=== PATIENT | female | born 1945 | race Caucasian/White ===

== ENCOUNTER 2018-08-24 15:13 | Inpatient (IN) | payer BC, MEDICARE ==
[~2018-08-24] VITALS: Ht 152.4 cm; Wt 63.0 kg
[~2018-08-24 15:13] MED LIST: ABILIFY5 MG ORAL; BETHANECHOL CHL10 MG ORAL; CELEXA20 MG PO; DEPAKOTE250 MG PO; DEPAKOTE500 MG PO; DITROPAN10 MG ORAL; GABAPENTIN300 MG ORAL; MELATONIN1 MG/1 ML PO; MELATONIN3 MG ORAL; QUETIAPINE FUM100 MG ORAL; QUETIAPINE FUM200 MG ORAL; SEROQUEL100 MG ORAL; SEROQUEL25 MG ORAL; TRAMADOL HCL50 MG ORAL; TRAZODONE HCL100 MG ORAL; VESICARE10 MG ORAL
[2018-08-24 15:25] VITALS: BP 110/60
[2018-08-24] MEDS ORDERED: DIVALPROEX SOD500 M2 PO (15:52)
[2018-08-24] MEDS ORDERED: GABAPENTIN300 MG ORAL (15:52)
[2018-08-24] MEDS ORDERED: QUETIAPINE FUMA50 MG ORAL (15:52)
[2018-08-24 17:00] VITALS: BP 137/59
[2018-08-24 17:00] LABS: ANION GAP 12 mmol/L (5-15); BLOOD UREA NITROGEN 36 mg/dL (7-18); CALCIUM 9.7 MG/DL (8.5-10.1); CARBON DIOXIDE 20 MMOL/L (21-32); CHLORIDE 112 MMOL/L (98-107); POTASSIUM 4.3 MMOL/L (3.5-5.1); SODIUM 144 MMOL/L (136-145)
[2018-08-24 17:10] LABS: ALANINE AMINOTRANSFERASE 16 U/L (12-78); ALBUMIN 2.9 G/DL (3.4-5.0); ALBUMIN/GLOBULIN RATIO 0.7 (1.0-2.7); ALKALINE PHOSPHATASE 111 U/L (46-116); ASPARTATE AMINO TRANSFERASE 24 U/L (15-37); BILIRUBIN,TOTAL 0.3 MG/DL (0.2-1.0)
--- NOTE | 2018-08-24 17:24 | Diagnostic Imaging Report ---
EXAM: XR Chest, 1 View CLINICAL HISTORY: PAIN TECHNIQUE: Frontal view of the chest. COMPARISON: No relevant prior studies available. FINDINGS: Lungs: Unremarkable. No consolidation. Pleural space: Unremarkable. No pneumothorax. Heart: Unremarkable. No cardiomegaly. Mediastinum: Aortic calcifications. Bones/joints: Unremarkable. Upper abdomen: Abundant bowel gas below the mildly elevated left hemidiaphragm. IMPRESSION: No evidence of acute pulmonary disease. Abundant bowel gas below the mildly elevated left hemidiaphragm.
--- NOTE | 2018-08-24 17:26 | Diagnostic Imaging Report ---
EXAM: CT Head Without Intravenous Contrast CLINICAL HISTORY: AMS TECHNIQUE: Axial computed tomography images of the head/brain without intravenous contrast. CTDI is 70.38 mGy and DLP is 1337 mGy-cm One or more of the following dose reduction techniques were used: automated exposure control, adjustment of the mA and/or kV according to patient size, use of iterative reconstruction technique. COMPARISON: No relevant prior studies available. FINDINGS: Brain: No intracranial hemorrhage or mass effect. No clear acute large vessel territorial infarct. Involutional and microvascular ischemic changes. Ventricles: Ventriculomegaly is felt to be commensurate with central volume loss. Bones/joints: Unremarkable. No acute fracture. Soft tissues: Unremarkable. Sinuses: Unremarkable as visualized. No acute sinusitis. Mastoid air cells: Unremarkable as visualized. No mastoid effusion. IMPRESSION: No acute intracranial process.
[2018-08-24 17:35] LABS: APPEARANCE,URINE CLEAR; BILIRUBIN, URINE NEGATIVE (NEGATIVE); COLOR,URINE PALE YELLOW; GLUCOSE, URINE (UA) NEGATIVE (NEGATIVE); KETONES,URINE NEGATIVE (NEGATIVE); LEUKOCYTE ESTERASE ,URINE NEGATIVE (NEGATIVE); NITRITE,URINE NEGATIVE (NEGATIVE); PH,URINE 6.5 (4.5-8.0); PROTEIN,URINE NEGATIVE (NEGATIVE); UROBILINOGEN,URINE NORMAL MG/DL (0.0-1.0)
[2018-08-24 19:02] LABS: HEMATOCRIT 23.7 % (37.0-47.0); HEMOGLOBIN 7.9 G/DL (12.0-16.0); MEAN CORPUSCULAR VOLUME 94 FL (80-99); PLATELET COUNT 99 K/UL (150-450); RED BLOOD COUNT 2.53 M/UL (4.20-5.40); RED CELL DISTRIBUTION WIDTH 13.3 % (11.6-14.8); WHITE BLOOD COUNT 2.3 K/UL (4.8-10.8)
[2018-08-24 19:10] VITALS: BP 128/62
--- NOTE | 2018-08-24 19:10 | Emergency Room Report ---
History of Present Illness General Chief Complaint: Altered Mental Status Source: Patient, Caregiver Present Illness HPI 73-year-old female presents ED for evaluation. She brought in by clay roaster from [facility] facility. Increased sleepiness and confusion 1 day. Hand Launderer states that patient is new to their facility. [facility] Patient appears at baseline to her however daughter spoke to patient on the phone believe the patient appeared altered. Patient states she feels okay. Is lethargic. Documented psychiatric history. Takes medications. No SI or HI. No hearing voices. Denies chest pain or shortness of breath. Denies headache. Denies nausea or vomiting. No other aggravating relieving factors. Denies any other associated symptoms Allergies: Coded Allergies: PENICILLINS (Verified Allergy, Unknown, 08/24/18) Patient History Past Medical History: psych hx Past Surgical History: none Pertinent Family History: none Social History: Denies: smoking, alcohol use, drug use Now: No Immunizations: UTD Reviewed Nursing Documentation: PMH: Agreed; PSxH: Agreed Nursing Documentation-PMH Past Medical History: No History, Except For History Of Psychiatric Problem: Yes - Bipolar Review of Systems All Other Systems: negative except mentioned in HPI Physical Exam Vital Signs Date Time Temp Pulse Resp B/P (MAP) Pulse Ox O2 Delivery O2 Flow Rate FiO2 08/24/18 15:25 97.7 78 20 110/60 98 Room Air 97.7 Sp02 EP Interpretation: reviewed, normal General Appearance: no apparent distress, GCS 15, non-toxic, lethargic Head: normocephalic, atraumatic Eyes: bilateral eye normal inspection, bilateral eye PERRL ENT: hearing grossly normal, normal pharynx, no angioedema, normal voice Neck: full range of motion, supple/symm/no masses Respiratory: chest non-tender, lungs clear, normal breath sounds, speaking full sentences Cardiovascular #1: regular rate, rhythm, no edema Cardiovascular #2: 2+ carotid (R), 2+ carotid (L), 2+ radial (R), 2+ radial (L) , 2+ dorsalis pedis (R), 2+ dorsalis pedis (L) Gastrointestinal: normal bowel sounds, non tender, soft, non-distended, no guarding, no rebound Rectal: deferred Genitourinary: normal inspection, no CVA tenderness Musculoskeletal: back normal, gait/station normal, normal range of motion, non- tender Neurologic: alert, responsive, motor strength/tone normal, sensory intact, other - lethargic Psychiatric: other - lethargic Reflexes: 3+ bicep (R), 3+ bicep (L), 3+ tricep (R), 3+ tricep (L), 3+ knee (R) , 3+ knee (L) Skin: normal color, no rash, warm/dry, well hydrated Lymphatic: no adenopathy Medical Decision Making Diagnostic Impression: Primary Impression: Dehydration Additional Impressions: Altered mental status Qualified Codes: R41.82 - Altered mental status, unspecified Anemia Qualified Codes: D64.9 - Anemia, unspecified ER Course Hospital Course 73-year-old female presents with increased lethargy times [facility] Differential diagnoses include: arrythmia, dehydration, CVA/TIA, UTI Clinical course Patient placed on stretcher. on cardiac sonographer. After initial history and physical I ordered labs, EKG, chest x-ray, IVFs, CT Brain labs reviewed- no leukocytosis, hemoglobin 7.9, BUN/Cr 36/2. UA negative, UTox negative EKG- NSR, no acute ischemic changes interpreted by me Chest x-ray- no acute process CT brain-unremarkable Concern for dehydration. Case discussed with Dr. Hfofman and he agreed to accept the patient to his service for further care and support I. I feel this is a highly complex case requiring extensive working including EKG/Rhythm strip, Xray/CT/US, Blood/urine lab work, repeat exams while in ED, and administration of strong opiates/narcotics for pain control, admission to hospital or close patient follow up. Diagnosis -dehydration, AMS, anemia admitted to floor in serious condition Labs Test 08/24/18 16:12 08/24/18 17:20 08/24/18 18:54 Sodium Level 144 MMOL/L (136-145) Potassium Level 4.3 MMOL/L (3.5-5.1) Chloride Level 112 MMOL/L (98-107) Carbon Dioxide Level 20 MMOL/L (21-32) Anion Gap 12 mmol/L (5-15) Blood Urea Nitrogen 36 mg/dL (7-18) Creatinine 2.0 MG/DL (0.55-1.30) Estimat Glomerular Filtration Rate mL/min (>60) Glucose Level 114 MG/DL (74-106) Calcium Level 9.7 MG/DL (8.5-10.1) Total Bilirubin 0.3 MG/DL (0.2-1.0) Aspartate Amino Transf (AST/SGOT) 24 U/L (15-37) Alanine Aminotransferase (ALT/SGPT) 16 U/L (12-78) Alkaline Phosphatase 111 U/L (46-116) Total Protein 6.9 G/DL (6.4-8.2) Albumin 2.9 G/DL (3.4-5.0) Globulin 4.0 g/dL Albumin/Globulin Ratio 0.7 (1.0-2.7) Acetaminophen Level < 2 MCG/ML (10-30) Valproic Acid (Depakene) Level 106 MCG/ML (50-100) Serum Alcohol < 3 mg/dL Urine Color Pale yellow Urine Appearance Clear Urine pH 6.5 (4.5-8.0) Urine Specific Warren 1.005 (1.005-1.035) Urine Protein Negative (NEGATIVE) Urine Glucose (UA) Negative (NEGATIVE) Urine Ketones Negative (NEGATIVE) Urine Blood Negative (NEGATIVE) Urine Nitrite Negative (NEGATIVE) Urine Bilirubin Negative (NEGATIVE) Urine Urobilinogen Normal MG/DL (0.0-1.0) Urine Leukocyte Esterase Negative (NEGATIVE) Urine Opiates Screen Negative (NEGATIVE) Urine Barbiturates Screen Negative (NEGATIVE) Phencyclidine (PCP) Screen Negative (NEGATIVE) Urine Amphetamines Screen Negative (NEGATIVE) Urine Benzodiazepines Screen Negative (NEGATIVE) Urine Cocaine Screen Negative (NEGATIVE) Urine Marijuana (THC) Screen Negative (NEGATIVE) White Blood Count 2.3 K/UL (4.8-10.8) Red Blood Count 2.53 M/UL (4.20-5.40) Hemoglobin 7.9 G/DL (12.0-16.0) Hematocrit 23.7 % (37.0-47.0) Mean Corpuscular Volume 94 FL (80-99) Mean Corpuscular Hemoglobin 31.2 PG (27.0-31.0) Mean Corpuscular Hemoglobin Concent 33.3 G/DL (32.0-36.0) Red Cell Distribution Width 13.3 % (11.6-14.8) Platelet Count 99 K/UL (150-450) Mean Platelet Volume 7.6 FL (6.5-10.1) Neutrophils (%) (Auto) % (45.0-75.0) Lymphocytes (%) (Auto) % (20.0-45.0) Monocytes (%) (Auto) % (1.0-10.0) Eosinophils (%) (Auto) % (0.0-3.0) Basophils (%) (Auto) % (0.0-2.0) EKG Diagnostic Results Rate: normal Rhythm: NSR ST Segments: no acute changes ASA given to the pt in ED: No Rhythm Strip Diag. Results EP Interpretation: yes Rhythm: NSR, no PVC's, no ectopy Chest X-Ray Diagnostic Results Chest X-Ray Diagnostic Results : Chest X-Ray Ordered: Yes # of Views/Limited/Complete: 1 View Indication: Other - ams EP Interpretation: Yes Interpretation: no consolidation, no effusion, no pneumothorax, no acute cardiopulmonary disease Impression: No acute disease Electronically Signed by: Electronically signed by Misha Atwood MD CT/MRI/US Diagnostic Results CT/MRI/US Diagnostic Results : Imaging Test Ordered: CT head Impression no acute process Last Vital Signs Date Time Temp Pulse Resp B/P (MAP) Pulse Ox O2 Delivery O2 Flow Rate FiO2 08/24/18 17:00 97.4 78 17 137/59 99 Room Air 97.4 Status: improved Disposition: ADMITTED INPATIENT Condition: Serious Referrals: NOT CHOSEN IPA/,REFERRING (PCP) Misha Atwood MD Aug 24, 2018 19:10
[2018-08-24 22:22] VITALS: BP 122/60
[2018-08-24 22:45] VITALS: BP 135/61
[2018-08-24] MEDS ORDERED: QUETIAPINE FUM200 MG ORAL (23:16)
[2018-08-25] VITALS: BP 133/65
[2018-08-25] MEDS ORDERED: Acetaminophen 500mg (ES) tab ORAL PRN (00:30)
[2018-08-25] MEDS: 1/2NS w/KCl 20mEq 1000ml 1,000 ML IV SCH ×2 (00:55→16:40)
[2018-08-25 04:00] VITALS: BP 155/70
[2018-08-25 08:00] VITALS: BP 153/84
[2018-08-25 08:32] LABS: HEMATOCRIT 25.7 % (37.0-47.0); HEMOGLOBIN 8.2 G/DL (12.0-16.0); MEAN CORPUSCULAR VOLUME 94 FL (80-99); PLATELET COUNT 89 K/UL (150-450); RED BLOOD COUNT 2.74 M/UL (4.20-5.40); RED CELL DISTRIBUTION WIDTH 14.1 % (11.6-14.8); WHITE BLOOD COUNT 6.7 K/UL (4.8-10.8)
[2018-08-25 08:55] LABS: ANION GAP 10 mmol/L (5-15); BLOOD UREA NITROGEN 25 mg/dL (7-18); CALCIUM 9.8 MG/DL (8.5-10.1); CARBON DIOXIDE 20 MMOL/L (21-32); CHLORIDE 117 MMOL/L (98-107); CREATININE 1.6 MG/DL (0.55-1.30); POTASSIUM 4.8 MMOL/L (3.5-5.1); SODIUM 147 MMOL/L (136-145)
[2018-08-25] MEDS: Heparin 5000 units/ml inj SUBQ SCH ×2 (08:55→20:20)
[2018-08-25 12:00] VITALS: BP 133/73
[2018-08-25 16:00] VITALS: BP 157/81
[2018-08-25 20:00] VITALS: BP 122/69
[2018-08-25] MEDS: QUEtiapine 200mg tab ORAL SCH (20:14)
[2018-08-25] MEDS: Depakote ER 500mg tab ORAL SCH (20:17)
--- NOTE | 2018-08-25 21:37 | Consultation ---
History of Present Illness General Date patient seen: Aug 25, 2018 Chief Complaint: Altered Mental Status Present Illness HPI 3-year-old female from a [facility]. The patient was brought into the hospital with altered level of consciousness. the pt has been confused and pw waxing and waning of consciousness Allergies: Coded Allergies: PENICILLINS (Verified Allergy, Mild, Rash, 01/25/15) Uncoded Allergies: wool (Adverse Reaction, Mild, Rash, 12/02/14) Medication History Scheduled Divalproex Sodium (Depakote), 750 MG PO QHS, (Reported) Divalproex Sodium (Divalproex Sodium Er), 1,000 MG PO BEDTIME, (Reported) Divalproex Sodium* (Depakote*), 250 MG PO hs, (Reported) Gabapentin* (Gabapentin*), 300 MG ORAL 3 times a day, (Reported) Gabapentin* (Gabapentin*), 300 MG ORAL THREE TIMES A DAY, (Reported) Quetiapine Fumarate* (Seroquel*), 250 MG ORAL QHS, (Reported) Quetiapine Fumarate* (Seroquel*), 200 MG ORAL BEDTIME, (Reported) Solifenacin Succinate (Vesicare*), 10 MG ORAL DAILY, (Reported) Scheduled PRN Tramadol Hcl* (Ultram*), 50 MG ORAL Q6H PRN for For Pain, (Reported) Patient History Limited by: medical condition History Provided By: Patient, Medical Record Healthcare decision maker N Resuscitation status Full Code Advanced Directive on File Past Medical/Surgical History Past Medical/Surgical History: (1) Dehydration (2) Anemia (3) Altered mental status Review of Systems Psychiatric: Reports: anxiety, depressed feelings, emotional problems Physical Exam General Appearance: no apparent distress, alert, confused Last 24 Hour Vital Signs Date Time Temp Pulse Resp B/P (MAP) Pulse Ox O2 Delivery O2 Flow Rate FiO2 08/25/18 20:40 Room Air 08/25/18 20:00 97.7 78 16 122/69 (86) 99 97.7 08/25/18 16:00 97.7 78 18 157/81 (106) 96 97.7 08/25/18 12:00 97.5 100 18 133/73 (93) 100 97.5 08/25/18 09:00 Room Air 08/25/18 08:00 98.1 98 16 153/84 (107) 98 98.1 08/25/18 04:00 97.5 86 18 155/70 (98) 99 97.5 08/25/18 00:00 98.2 90 17 133/65 (87) 99 98.2 08/24/18 23:29 Room Air 08/24/18 22:45 98.6 88 18 135/61 (85) 99 98.6 08/24/18 22:40 97.8 71 16 122/60 99 Room Air 97.8 08/24/18 22:22 71 16 122/60 99 Room Air Intake and Output 08/24/18 08/25/18 18:59 06:59 Intake Total 0 ml 2870 ml Output Total 400 ml Balance 0 ml 2470 ml Intake Oral 0 ml 480 ml IV Total 2390 ml Output Urine Total 400 ml # Voids 4 Laboratory Tests Test 08/25/18 07:40 White Blood Count 6.7 K/UL (4.8-10.8) # Red Blood Count 2.74 M/UL (4.20-5.40) L Hemoglobin 8.2 G/DL (12.0-16.0) L Hematocrit 25.7 % (37.0-47.0) L Mean Corpuscular Volume 94 FL (80-99) Mean Corpuscular Hemoglobin 29.8 PG (27.0-31.0) Mean Corpuscular Hemoglobin Concent 31.9 G/DL (32.0-36.0) L Red Cell Distribution Width 14.1 % (11.6-14.8) Platelet Count 89 K/UL (150-450) L Mean Platelet Volume 6.0 FL (6.5-10.1) L Neutrophils (%) (Auto) % (45.0-75.0) Lymphocytes (%) (Auto) % (20.0-45.0) Monocytes (%) (Auto) % (1.0-10.0) Eosinophils (%) (Auto) % (0.0-3.0) Basophils (%) (Auto) % (0.0-2.0) Differential Total Cells Counted 100 Neutrophils % (Manual) 75 % (45-75) Lymphocytes % (Manual) 12 % (20-45) L Monocytes % (Manual) 12 % (1-10) H Eosinophils % (Manual) 0 % (0-3) Basophils % (Manual) 0 % (0-2) Band Neutrophils 1 % (0-8) Platelet Estimate Decreased L Platelet Morphology Normal Hypochromasia 1+ Anisocytosis Sodium Level 147 MMOL/L (136-145) H Potassium Level 4.8 MMOL/L (3.5-5.1) Chloride Level 117 MMOL/L (98-107) H Carbon Dioxide Level 20 MMOL/L (21-32) L Anion Gap 10 mmol/L (5-15) Blood Urea Nitrogen 25 mg/dL (7-18) H Creatinine 1.6 MG/DL (0.55-1.30) H Estimat Glomerular Filtration Rate mL/min (>60) Glucose Level 83 MG/DL (74-106) Calcium Level 9.8 MG/DL (8.5-10.1) Height (Feet): 5 Height (Inches): 0.00 Weight (Pounds): 139 Medications Current Medications Medications (Trade) Dose Ordered Sig/Consuelo Route PRN Reason Start Time Stop Time Status Last Admin Dose Admin Acetaminophen (Tylenol) 500 mg Q6H PRN ORAL Mild Pain/Temp > 100.5 08/25/18 00:30 09/24/18 00:29 Divalproex Sodium (Depakote ER) 1,000 mg BEDTIME ORAL 08/25/18 21:00 09/24/18 20:59 08/25/18 20:17 Gabapentin (Neurontin) 300 mg THREE TIMES A DAY ORAL 08/25/18 09:00 09/24/18 08:59 08/25/18 18:16 Heparin Sodium (Porcine) (Heparin 5000 units/ml) 5,000 units EVERY 12 HOURS SUBQ 08/25/18 09:00 09/24/18 08:59 08/25/18 20:20 Quetiapine Fumarate (SEROquel) 200 mg BEDTIME ORAL 08/25/18 21:00 09/24/18 20:59 08/25/18 20:14 Sodium 1,000 ml @ 65 mls/hr [id number] IV 08/25/18 00:30 09/24/18 00:29 08/25/18 16:40 Assessment/Plan Problem List: (1) Encephalopathy due to metabolic factor or toxin SNOMED: 573337840 Status: unchanged Assessment/Plan depakote 1000mg qhs seroquel 200mg qhs Noemy Jean MD Aug 25, 2018 21:37
--- NOTE | 2018-08-25 22:45 | History and Physical Report ---
DATE OF ADMISSION: 08/24/2018 CHIEF COMPLAINT: Altered level of consciousness. HISTORY OF PRESENT ILLNESS: This is a 73-year-old female from a [facility] [place]. The patient was brought into the hospital with altered level of consciousness. I do not have any records to compare on this patient. Currently, the [facility]. 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 The patient became more altered. PAST MEDICAL HISTORY: Apparently, she has organic brain syndrome. HOME MEDICATIONS: According to the record, she is on Depakote, Neurontin, Seroquel. ALLERGIES: Penicillins. FAMILY HISTORY: Unable to obtain. SOCIAL HISTORY: Unable to obtain. REVIEW OF SYSTEMS: Unable to obtain. PHYSICAL EXAMINATION: GENERAL: This is an elderly female who is in no acute distress. VITAL SIGNS: Blood pressure 153/84, pulse is 98 and regular, respirations 16, temperature 98.1. HEENT: The head is normocephalic and atraumatic. Pupils are equal, round, and reactive to light and accommodation consensually. NECK: Supple. Trachea midline. There was no lymphadenopathy or thyromegaly. LUNGS: Clear to auscultation and percussion. HEART: Regular rate and rhythm without rubs, murmurs, or gallops. ABDOMEN: Soft and nontender. Bowel sounds were active. EXTREMITIES: No clubbing, cyanosis, or edema. NEUROLOGIC: She is very confused. There were no focal signs. LABORATORY AND ANCILLARY DATA: Hematocrit very low at 25.7, WBC 6.7. Depakote level on admission was 106. Serum chemistry unremarkable except creatinine on admission was 2 and today 1.6. Chest x-ray, no acute disease. CAT scan of the head, no acute intracranial process. ASSESSMENT: 1. Multifactorial altered level of consciousness. 2. Anemia, rule out GI bleed. 3. Prerenal azotemia. PLAN: 1. IV fluid rehydration. 2. Check iron level. 3. Consider GI workup if stool occult blood is positive. Adriana Jara M.D. DR: David JOB#: [id number] CC:
[2018-08-26] VITALS: BP 131/78
[2018-08-26 04:00] VITALS: BP 149/73
[2018-08-26] MEDS: 1/2NS w/KCl 20mEq 1000ml 1,000 ML IV SCH (06:21)
[2018-08-26 07:01] LABS: IRON 25 ug/dL (50-175)
[2018-08-26 07:02] LABS: % IRON SATURATION 9 % (15-50); TOTAL IRON BINDING CAPACITY 268 ug/dL (250-450)
[2018-08-26 07:15] LABS: HEMATOCRIT 25.2 % (37.0-47.0); MEAN CORPUSCULAR VOLUME 93 FL (80-99); PLATELET COUNT 92 K/UL (150-450); RED CELL DISTRIBUTION WIDTH 13.4 % (11.6-14.8)
[2018-08-26 07:17] LABS: ANION GAP 8 mmol/L (5-15); BLOOD UREA NITROGEN 20 mg/dL (7-18); CALCIUM 10.1 MG/DL (8.5-10.1); CARBON DIOXIDE 22 MMOL/L (21-32); CHLORIDE 116 MMOL/L (98-107); CREATININE 1.8 MG/DL (0.55-1.30); FERRITIN 499 NG/ML (8-388); POTASSIUM 5.5 MMOL/L (3.5-5.1); SODIUM 146 MMOL/L (136-145)
[2018-08-26 08:00] VITALS: BP 119/69
[2018-08-26] MEDS: Heparin 5000 units/ml inj SUBQ SCH ×2 (08:54→20:41)
[2018-08-26 12:00] VITALS: BP 111/62
[2018-08-26 16:00] VITALS: BP 132/70
--- NOTE | 2018-08-26 16:26 | General Progress Note ---
Assessment/Plan Assessment/Plan K 5.5 DC K from IVF CKD II etiology unclear . Check Renal US. Anemia - m/p of CKD. Check stool OB. Subjective Allergies: Coded Allergies: PENICILLINS (Verified Allergy, Mild, Rash, 01/25/15) Uncoded Allergies: wool (Adverse Reaction, Mild, Rash, 12/02/14) Subjective Confused Objective Last 24 Hour Vital Signs Date Time Temp Pulse Resp B/P (MAP) Pulse Ox O2 Delivery O2 Flow Rate FiO2 08/26/18 12:00 97.9 70 20 111/62 (78) 97 97.9 70 08/26/18 09:00 Room Air 08/26/18 08:00 97.9 98 20 119/69 (86) 97 97.9 98 08/26/18 04:00 98.3 71 19 149/73 (98) 97 98.3 08/26/18 00:00 98.2 74 19 131/78 (95) 98 98.2 08/25/18 20:40 Room Air 08/25/18 20:00 97.7 78 16 122/69 (86) 99 97.7 Intake and Output 08/25/18 08/26/18 19:00 07:00 Intake Total 1621 ml 835 ml Output Total 300 ml 700 ml Balance 1321 ml 135 ml Intake Oral 906 ml 120 ml IV Total 715 ml 715 ml Output Urine Total 300 ml 700 ml # Voids 1 4 # Bowel Movements 1 Laboratory Tests 08/26/18 06:15: White Blood Count 6.0, Red Blood Count 2.70L, Hemoglobin 8.0L, Hematocrit 25.2L , Mean Corpuscular Volume 93, Mean Corpuscular Hemoglobin 29.6, Mean Corpuscular Hemoglobin Concent 31.7L, Red Cell Distribution Width 13.4, Platelet Count 92L, Mean Platelet Volume 6.2L, Neutrophils (%) (Auto) , Lymphocytes (%) (Auto) , Monocytes (%) (Auto) , Eosinophils (%) (Auto) , Basophils (%) (Auto) , Differential Total Cells Counted 100, Neutrophils % ( Manual) 72, Lymphocytes % (Manual) 19L, Monocytes % (Manual) 8, Eosinophils % ( Manual) 1, Basophils % (Manual) 0, Band Neutrophils 0, Platelet Estimate DecreasedL, Platelet Morphology Normal, Hypochromasia 1+, Sodium Level 146H, Potassium Level 5.5H, Chloride Level 116H, Carbon Dioxide Level 22, Anion Gap 8 , Blood Urea Nitrogen 20H, Creatinine 1.8H, Estimat Glomerular Filtration Rate , Glucose Level 82, Calcium Level 10.1, Magnesium Level 2.1, Iron Level 25L, Total Iron Binding Capacity 268, Percent Iron Saturation 9L, Unsaturated Iron Binding 243, Ferritin 499H, Thyroid Stimulating Hormone (TSH) 3.279 Height (Feet): 5 Height (Inches): 0.00 Weight (Pounds): 139 Objective CV RR Lungs CTA Abd SNT. BS + E No CCE Adriana Jara MD Aug 26, 2018 16:26
[2018-08-26 20:00] VITALS: BP 157/82
[2018-08-26] MEDS: QUEtiapine 200mg tab ORAL SCH (20:36)
[2018-08-26] MEDS: Depakote ER 500mg tab ORAL SCH (20:36)
[2018-08-27] VITALS: BP 133/80
--- NOTE | 2018-08-27 00:12 | General Progress Note ---
Assessment/Plan Problem List: (1) Encephalopathy due to metabolic factor or toxin SNOMED: [id number] Assessment/Plan [facility] dc Depakote seroquel 100mg qhs Subjective Date patient seen: Aug 26, 2018 Neurologic/Psychiatric: Reports: anxiety, depressed, emotional problems Allergies: Coded Allergies: PENICILLINS (Verified Allergy, Mild, Rash, 01/25/15) Uncoded Allergies: wool (Adverse Reaction, Mild, Rash, 12/02/14) Objective Last 24 Hour Vital Signs Date Time Temp Pulse Resp B/P (MAP) Pulse Ox O2 Delivery O2 Flow Rate FiO2 08/26/18 21:00 Room Air 08/26/18 20:00 99.8 103 20 157/82 (107) 96 99.8 08/26/18 16:00 98.2 88 21 132/70 (90) 96 98.2 08/26/18 12:00 97.9 70 20 111/62 (78) 97 97.9 70 08/26/18 09:00 Room Air 08/26/18 08:00 97.9 98 20 119/69 (86) 97 97.9 98 08/26/18 04:00 98.3 71 19 149/73 (98) 97 98.3 Intake and Output 08/26/18 08/27/18 18:59 06:59 Intake Total 720 ml Balance 720 ml Intake Oral 720 ml Laboratory Tests 08/26/18 06:15: White Blood Count 6.0, Red Blood Count 2.70L, Hemoglobin 8.0L, Hematocrit 25.2L , Mean Corpuscular Volume 93, Mean Corpuscular Hemoglobin 29.6, Mean Corpuscular Hemoglobin Concent 31.7L, Red Cell Distribution Width 13.4, Platelet Count 92L, Mean Platelet Volume 6.2L, Neutrophils (%) (Auto) , Lymphocytes (%) (Auto) , Monocytes (%) (Auto) , Eosinophils (%) (Auto) , Basophils (%) (Auto) , Differential Total Cells Counted 100, Neutrophils % ( Manual) 72, Lymphocytes % (Manual) 19L, Monocytes % (Manual) 8, Eosinophils % ( Manual) 1, Basophils % (Manual) 0, Band Neutrophils 0, Platelet Estimate DecreasedL, Platelet Morphology Normal, Hypochromasia 1+, Sodium Level 146H, Potassium Level 5.5H, Chloride Level 116H, Carbon Dioxide Level 22, Anion Gap 8 , Blood Urea Nitrogen 20H, Creatinine 1.8H, Estimat Glomerular Filtration Rate , Glucose Level 82, Calcium Level 10.1, Magnesium Level 2.1, Iron Level 25L, Total Iron Binding Capacity 268, Percent Iron Saturation 9L, Unsaturated Iron Binding 243, Ferritin 499H, Thyroid Stimulating Hormone (TSH) 3.279 Height (Feet): 5 Height (Inches): 0.00 Weight (Pounds): 139 General Appearance: no apparent distress, alert, confused Noemy Jean MD Aug 27, 2018 00:12
[2018-08-27 04:00] VITALS: BP 126/73
[2018-08-27 07:37] LABS: HEMATOCRIT 25.9 % (37.0-47.0); HEMOGLOBIN 8.4 G/DL (12.0-16.0); MEAN CORPUSCULAR VOLUME 93 FL (80-99); PLATELET COUNT 89 K/UL (150-450); RED BLOOD COUNT 2.77 M/UL (4.20-5.40); RED CELL DISTRIBUTION WIDTH 13.6 % (11.6-14.8); WHITE BLOOD COUNT 7.6 K/UL (4.8-10.8)
[2018-08-27 07:53] LABS: ANION GAP 10 mmol/L (5-15); BLOOD UREA NITROGEN 20 mg/dL (7-18); CALCIUM 9.5 MG/DL (8.5-10.1); CARBON DIOXIDE 20 MMOL/L (21-32); CHLORIDE 117 MMOL/L (98-107); CREATININE 1.6 MG/DL (0.55-1.30); PHOSPHORUS 4.2 MG/DL (2.5-4.9); POTASSIUM 4.9 MMOL/L (3.5-5.1); SODIUM 147 MMOL/L (136-145)
[2018-08-27 08:00] VITALS: BP 120/68
[2018-08-27] MEDS: Heparin 5000 units/ml inj SUBQ SCH (08:41)
[2018-08-27 12:00] VITALS: BP 124/73
--- NOTE | 2018-08-27 12:30 | Diagnostic Imaging Report ---
Indication:Elevated Bun and Creatinine. Technique: Grayscale and duplex Doppler imaging of the kidneys performed. Comparison: None Findings: The kidneys are echogenic measuring between 9 and 10 cm bilaterally. No hydronephrosis seen. Suggestion of a small central cyst within the right kidney. IVC is unremarkable. Bladder is mildly distended. IMPRESSION: Medical renal disease
--- NOTE | 2018-08-27 13:33 | General Progress Note ---
Assessment/Plan Assessment/Plan K 5.5 DC K from IVF CKD II etiology unclear . Check Renal U S CKD!!! Anemia - m/p of CKD. Check stool OB. Anemia of CKD . DC home Subjective Allergies: Coded Allergies: PENICILLINS (Verified Allergy, Mild, Rash, 01/25/15) Uncoded Allergies: wool (Adverse Reaction, Mild, Rash, 12/02/14) Subjective Confused Objective Last 24 Hour Vital Signs Date Time Temp Pulse Resp B/P (MAP) Pulse Ox O2 Delivery O2 Flow Rate FiO2 08/27/18 12:00 97.9 67 19 124/73 (90) 99 97.9 08/27/18 09:00 Room Air 08/27/18 08:00 97.4 97 19 120/68 (85) 98 97.4 08/27/18 04:00 96.8 75 20 126/73 (90) 98 96.8 08/27/18 00:00 98.9 98 20 133/80 (97) 100 98.9 08/26/18 21:00 Room Air 08/26/18 20:00 99.8 103 20 157/82 (107) 96 99.8 08/26/18 16:00 98.2 88 21 132/70 (90) 96 98.2 Intake and Output 08/26/18 08/27/18 19:00 07:00 Intake Total 785 ml 710 ml Output Total 1300 ml Balance 785 ml -590 ml Intake Oral 720 ml IV Total 65 ml 710 ml Output Urine Total 1300 ml # Voids 2 Laboratory Tests 08/27/18 07:05: White Blood Count 7.6, Red Blood Count 2.77L, Hemoglobin 8.4L, Hematocrit 25.9L , Mean Corpuscular Volume 93, Mean Corpuscular Hemoglobin 30.3, Mean Corpuscular Hemoglobin Concent 32.5, Red Cell Distribution Width 13.6, Platelet Count 89L, Mean Platelet Volume 6.3L, Neutrophils (%) (Auto) , Lymphocytes (%) ( Auto) , Monocytes (%) (Auto) , Eosinophils (%) (Auto) , Basophils (%) (Auto) , Differential Total Cells Counted 100, Neutrophils % (Manual) 77H, Lymphocytes % (Manual) 18L, Monocytes % (Manual) 5, Eosinophils % (Manual) 0, Basophils % ( Manual) 0, Band Neutrophils 0, Platelet Estimate DecreasedL, Platelet Morphology Normal, Hypochromasia 2+, Anisocytosis 1+, Sodium Level 147H, Potassium Level 4.9, Chloride Level 117H, Carbon Dioxide Level 20L, Anion Gap 10 , Blood Urea Nitrogen 20H, Creatinine 1.6H, Estimat Glomerular Filtration Rate , Glucose Level 87, Calcium Level 9.5, Phosphorus Level 4.2 Height (Feet): 5 Height (Inches): 0.00 Weight (Pounds): 139 Objective CV RR Lungs CTA Abd SNT. BS + E No CCE Adriana Jara MD Aug 27, 2018 13:33
[2018-08-27] MEDS ORDERED: SEROQUEL200 MG ORAL (13:34)
[2018-08-27] MEDS ORDERED: 1/2 NS 1000ml IV ONE (16:04)
[2018-08-27] MEDS ORDERED: QUEtiapine 200mg tab ORAL SCH (21:00)
--- NOTE | 2018-08-27 21:40 | General Progress Note ---
Assessment/Plan Problem List: (1) Encephalopathy due to metabolic factor or toxin SNOMED: 564326585 Status: stable, progressing Assessment/Plan VA is high dc Depakote seroquel 100mg qhs Subjective Date patient seen: Aug 27, 2018 Neurologic/Psychiatric: Reports: anxiety, depressed Allergies: Coded Allergies: PENICILLINS (Verified Allergy, Mild, Rash, 01/25/15) Uncoded Allergies: wool (Adverse Reaction, Mild, Rash, 12/02/14) Objective Last 24 Hour Vital Signs Date Time Temp Pulse Resp B/P (MAP) Pulse Ox O2 Delivery O2 Flow Rate FiO2 08/27/18 12:00 97.9 67 19 124/73 (90) 99 97.9 08/27/18 09:00 Room Air 08/27/18 08:00 97.4 97 19 120/68 (85) 98 97.4 08/27/18 04:00 96.8 75 20 126/73 (90) 98 96.8 08/27/18 00:00 98.9 98 20 133/80 (97) 100 98.9 Intake and Output 08/26/18 08/27/18 19:00 07:00 Intake Total 785 ml 710 ml Output Total 1300 ml Balance 785 ml -590 ml Intake Oral 720 ml IV Total 65 ml 710 ml Output Urine Total 1300 ml # Voids 2 Laboratory Tests 08/27/18 07:05: White Blood Count 7.6, Red Blood Count 2.77L, Hemoglobin 8.4L, Hematocrit 25.9L , Mean Corpuscular Volume 93, Mean Corpuscular Hemoglobin 30.3, Mean Corpuscular Hemoglobin Concent 32.5, Red Cell Distribution Width 13.6, Platelet Count 89L, Mean Platelet Volume 6.3L, Neutrophils (%) (Auto) , Lymphocytes (%) ( Auto) , Monocytes (%) (Auto) , Eosinophils (%) (Auto) , Basophils (%) (Auto) , Differential Total Cells Counted 100, Neutrophils % (Manual) 77H, Lymphocytes % (Manual) 18L, Monocytes % (Manual) 5, Eosinophils % (Manual) 0, Basophils % ( Manual) 0, Band Neutrophils 0, Platelet Estimate DecreasedL, Platelet Morphology Normal, Hypochromasia 2+, Anisocytosis 1+, Sodium Level 147H, Potassium Level 4.9, Chloride Level 117H, Carbon Dioxide Level 20L, Anion Gap 10 , Blood Urea Nitrogen 20H, Creatinine 1.6H, Estimat Glomerular Filtration Rate , Glucose Level 87, Calcium Level 9.5, Phosphorus Level 4.2 Height (Feet): 5 Height (Inches): 0.00 Weight (Pounds): 139 General Appearance: no apparent distress, alert, confused Noemy Jean MD Aug 27, 2018 21:40
--- NOTE | 2018-08-29 13:02 | Discharge Summary ---
Discharge Summary Discharge Summary _ DATE OF ADMISSION: 08/24/2018 DATE OF DISCHARGE: 08/27/2018 REASON FOR ADMISSION: 73 years old female with past medical history of psychiatric disorder , was sent to emergency department for evaluation from [facility] for altered mental status. The staff reported increased sleepiness and confusion. Patient was new to the facility . She was transferred from another [facility] , where she resided for 9 years. Patient denied suicidal or homicidal ideations, no auditory hallucinations. She denied chest pain or shortness of breath. Upon evaluation vital signs were stable. Laboratory workup revealed leukopenia WBC 2.3, hemoglobin 7.9 hematocrit 23.7, platelets 99 ; chemistry revealed evidence of renal failure with BUN 26, creatinine 2.0. Glucose 114. Urine toxicology screen was negative. Depakote level elevated- 106 Chest x-ray revealed no evidence of acute cardiopulmonary disease. CT of the head revealed no acute intracranial pathology. Patient admitted with diagnoses of altered level of consciousness, multifactorial; anemia, rule out GI bleeding, prerenal azotemia. CONSULTANTS: psychiatrist [facility] COURSE: Patient admitted and started on IV hydration. Renal parameters and electrolytes were closely monitored. Electrolytes were corrected as needed. Potassium was noted to be 5.5, potassium was removed from the IV fluids. Nephrotoxins were avoided. Creatinine down to 1.6 prior to discharge. Renal ultrasound revealed evidence of medical renal disease. Anemia workup revealed evidence of chronic disease , ferritin elevated 499. Stool for occult blood to be done at the facility as outpatient with close follow-up with the primary care provider. Initial leukopenia resolved. Hemiglobin and hematocrit were clsoely monitored with goal to keep hemoglobin above 7. Prior to discharge hemoglobin 8.4 and hematocrit 25.9. Psychiatrist seen and evaluated patient, and diagnosed patient with encephalopathy due to metabolic factor or toxin. Depakote was discontinued. Patient started on Seroquel at nighttime. Patient stabilized . Mental status back to baseline. Altered mental status was multifactorial , but likely largely related to elevated Depakote level. FINAL DIAGNOSES: Encephalopathy due to metabolic factor or toxin Chronic kidney disease stage II Anemia of chronic kidney disease DISCHARGE MEDICATIONS: See Medication Reconciliation list. DISCHARGE INSTRUCTIONS: Patient was discharged to [facility]. Outpatient follow-up with a primary care provider in one week. Check stool for occult blood as outpatient ,closely monitor counts. Monitor renal parameters and avoid nephrotoxics. I have been assigned to dictate discharge summary for this account. I was not involved in the patient's management. Beata Sharpe NP Aug 29, 2018 13:02
== END 2018-08-27 16:05 | disposition home or self-care (01) | DRG 72 ==
LOC: EMR 15:55 → EDBEDREQ 21:33 → MERGE 21:53 → 4E 21:53
DX: G93.49 Other encephalopathy (principal); D63.8 Anemia in other chronic diseases classified elsewhere; N18.3 Chronic kidney disease, stage 3 (moderate); Z88.0 Allergy status to penicillin; F09 Unspecified mental disorder due to known physiological condition
CPT/HCPCS: 36415; 70450; 71045; 76770; 80048; 80053; 80164; 80307; 80329; 81003; 82140; 82728; 82962; 83540; 83550; 83735; 84100; 84443; 85007; 85025; 87081; 93005; 96360; 96361; 99285